=== PATIENT | female | born 1965 | race Caucasian/White ===

== ENCOUNTER 2019-06-21 15:08 | Emergency (ER) | payer MEDICARE, OTHER ==
[~2019-06-21] VITALS: Ht 157.5 cm; Wt 41.7 kg
--- NOTE | 2019-06-21 15:21 | NUR ---
[facility] 37 From [facility] "sleepy/feels lethargic [id number]". APPEARS SLIGHTLY CONFUSED. FALLS ASLEEP EASILY. NO ACUTE DISTRESS NOTED. DENIES ANY MEDICAL PROBLEMS AT THIS TIME. ON MONITOR AND MADE COMFORTABLE. READY FOR EVAL.
[2019-06-21 15:54] LABS: BASOPHILS % (AUTO) 0.1 % (0.0-2.0); EOSINOPHILS % (AUTO) 3.8 % (0.0-6.0); HEMATOCRIT 34 % (33-45); HEMOGLOBIN 11.9 g/dL (11.5-14.8); LYMPHOCYTES # (AUTO) 0.9 /CMM (0.8-4.8); LYMPHOCYTES % (AUTO) 28.9 % (20.0-44.0); MEAN CORPUSCULAR HGB CONC 35 g/dl (31.0-36.0); MEAN CORPUSCULAR VOLUME 106 fL (82-100); MONOCYTES # (AUTO) 0.2 /CMM (0.1-1.30); MONOCYTES % (AUTO) 6.3 % (2.0-12.0); NEUTROPHILS % (AUTO) 60.9 % (43.0-81.0); PLATELET COUNT (AUTO) 83 /CMM (150-450); RED BLOOD CELL COUNT(AUTO) 3.22 MIL/uL (4.0-5.2); WHITE BLOOD COUNT (AUTO) 3.2 K/uL (4.3-11.0)
[2019-06-21 16:00] LABS: CALCIUM, SERUM 8.8 mg/dL (8.5-10.1); CREATININE 0.7 mg/dL (0.6-1.3); POTASSIUM 4.2 mmol/L (3.5-5.1)
[2019-06-21] MEDS: IV NS 0.9% 1,000 ML BAG IV ONE (16:06)
--- NOTE | 2019-06-21 16:27 | NUR ---
PT TAKEN TO RADIOLOGY [facility]IA [facility]
[2019-06-21] MEDS ORDERED: PANT40TA2 PO (17:03)
[2019-06-21] MEDS ORDERED: DIVA500T2 PO ×2 (17:03)
[2019-06-21] MEDS ORDERED: TEMA15CA PO (17:03)
[2019-06-21] MEDS ORDERED: MIRT15TA PO (17:03)
[2019-06-21] MEDS ORDERED: QUET400T PO (17:03)
[2019-06-21] MEDS ORDERED: LEVO88TA5 PO (17:04)
[2019-06-21] MEDS ORDERED: CLON0.5T PO (17:04)
--- NOTE | 2019-06-21 17:32 | NUR ---
URINE SPECIMEN SENT TO STAT LAB
[2019-06-21 17:36] LABS: APPEARANCE,URINE Clear (CLEAR); BILIRUBIN,URINE Negative (NEGATIVE); BLOOD, URINE Negative Ery/uL (NEGATIVE); COLOR,URINE Yellow (YELLOW); KETONES,URINE Negative (NEGATIVE); LEUKOCYTE ESTERASE ,URINE Negative (NEGATIVE); NITRITE, URINE Negative (NEGATIVE); PROTEIN,URINE Negative (NEGATIVE); UGLUCOSE Negative (NEGATIVE); UROBILINOGEN,URINE 0.2 EU/dL (0.2)
--- NOTE | 2019-06-21 17:58 | NUR ---
WALLY FROM [facility] CALLED. THE FACILITY WILL PROVIDE TRANSPORT HOME. ETA [id number]
[2019-06-21 18:43] LABS: EOSINOPHILS % (MANUAL) 4 % (0-4); LYMPHOCYTES % (MANUAL) 26 % (16-48); MONOCYTES % (MANUAL) 5 % (0-11.0); NEUTROPHILS % (MANUAL) 65 (42-76)
--- NOTE | 2019-06-21 19:17 | NUR ---
NEW ETA FOR TRANSPORT, AROUND 2029
--- NOTE | 2019-06-21 19:28 | NUR ---
PT RESTING COMFORTABLY IN BED, AWAITING TRANSPORT. PROVIDED TV AND MILK
--- NOTE | 2019-06-21 20:50 | NUR ---
Patient discharged to home in stable condition. Written and verbal after care instructions given. Patient verbalizes understanding of instruction.IV removed. Catheter intact and site benign. Pressure and 4x4 applied to site. No bleeding noted.
[2019-06-21 20:52] VITALS: BP 116/68
== END 2019-06-21 20:53 | disposition home or self-care (01) ==
LOC: ER 15:15
DX: R53.1 Weakness (principal); R42 Dizziness and giddiness; F31.9 Bipolar disorder, unspecified; R64 Cachexia; Z88.0 Allergy status to penicillin; Z88.1 Allergy status to other antibiotic agents; Z88.9 Allergy status to unspecified drugs, medicaments and biological substances
CPT/HCPCS: 36415; 70450; 80048; 81001; 85025; 87086; 93005; 96360; 99284; J7030; 81000-TC